=== PATIENT | male | born 1945 | race African-American/Black ===

== ENCOUNTER 2018-02-04 13:33 | Emergency (ER) | payer SELFPAY ==
[~2018-02-04 13:33] MED LIST: Calcium Chloride 1 GM/10 ML Abboject SYRINGE ONE; EPINEPHrine 1 MG/10 ML Abboject SYRINGE ONE; Sodium Bicarb 50 MEQ/50 ML Abboject 8.4% SYRINGE ONE
[2018-02-04 14:02] LABS: #Basophils 0.2 thou/uL (0.0-0.2); #Eosinphils 0.3 thou/uL (0.0-0.7); #Monocytes 0.2 thou/uL (0.11-0.59); #Neutrophils 5.1 thou/uL (1.40-6.50); %Eosinophils 3.5 % (0.0-10.0); %Lymphocytes 34.3 % (21.0-51.0); %Monocytes 1.9 % (0.0-10.0); %Neutrophils 58.3 % (42.0-75.0); Hemoglobin 11.1 g/dL (14.0-18.0); Mean Corpuscular HGB CONC 30.5 g/dL (32.0-36.0); Mean Corpuscular Hemoglobin 30.7 pg (27.0-31.0); Mean Platelet Volume 10.4 fL (7.4-10.4); Platelet Count 162 thou/uL (130-400); RBC Distribution Width 12.8 % (11.5-14.5); Red Blood Cell (RBC) Count 3.62 mill/uL (4.70-6.10); White Blood Cell (WBC) Count 8.7 thou/uL (4.8-10.8)
[2018-02-04 14:19] LABS: ALT (SGPT) 16 U/L (8-55); AST (SGOT) 99 U/L (5-34); Albumin 2.5 g/dL (3.4-4.8); Alkaline Phosphatase 159 U/L (40-150); Anion Gap 18 mmol/L (10-20); BUN (Urea Nitrogen) 23 mg/dL (8.4-25.7); Bilirubin, Total 0.4 mg/dL (0.2-1.2); CK (CPK) 246 U/L (30-200); Calc. Creatinine Clearance 0 mL/min (70-130); Calcium 10.3 mg/dL (7.8-10.44); Carbon Dioxide 20 mmol/L (23-31); Chloride 102 mmol/L (98-107); Estimated GFR-MDRD 51; Globulin 3.8 g/dL (2.4-3.5); Glucose 418 mg/dL (83-110); Potassium 4.8 mmol/L (3.5-5.1); Protein, Total 6.3 g/dL (5.8-8.1); Sodium 135 mmol/L (136-145)
[2018-02-04 14:23] LABS: CKMB 6.6 ng/mL (0-6.6)
[2018-02-04 14:46] LABS: Actual Bicarbonate (HCO3a) 21.5 mEq/L (22-28); Analyzer IN Cardio ER; Calcium, Ionized 1.17 mmol/L (1.12-1.30); Carboxyhemoglobin (COHb) 0.4 gm% (0.0-3.0); Hemoglobin (Hb) 12.5 g/dL (14.0-18.0); O2 Tension (PaO2) 473.8 mmHg (> 70.0); Potassium - ABG Lab 4.83 mmol/L (3.70-5.30); pH, Arterial 7.34 (7.35-7.45)
[2018-02-04 14:48] LABS: Puncture Site RBRACH
--- NOTE | 2018-02-04 15:15 | RAD ---
PORTABLE AP CHEST XRAY: DATE: 02/04/2018. HISTORY: Respiratory arrest, CPR by EMS upon arrival. Patient found unresponsive. FINDINGS: Endotracheal tube is noted in place with tip overlying the right mainstem bronchus and should be with drawn. Nasogastric tube is noted in place coursing into the left upper quadrant and the tip is not visualize d. Pacing devices overlie the right chest and left lateral lower chest and upper abdomen. Multilead left subclavian AICD device noted in place. 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 The ca rdiac silhouette is magnified by projection. Pulmonary vasculature is within normal limits. Lungs a re clear aside from calcified granuloma in the left mid lung zone. IMPRESSION: 1. Endotracheal tube noted in place with the tip overlying the right mainstem bronchus, and the tip should be withdrawn. 2. Nasogastric tube noted in place. 3. Lungs appear clear. 4. The above findings were discussed with Dr. Cortes in the emergency department on 02/04/2018 at 14 16 hours. POS: RAUL
--- NOTE | 2018-02-05 05:29 | DIS ---
DATE OF ADMISSION: 02/04/2018 DATE OF DISCHARGE: 02/04/2018 SUMMARY: ATTENDING: Wesley Aroar MD RESIDENT: Camilo Sandhu MD DATE OF : 02/04/2018. TIME OF : 1639 hours. CAUSE OF : Hypoxic respiratory failure, secondary to anoxic brain injury. SECONDARY DIAGNOSES: 1. Systolic congestive heart failure. 2. Coronary artery disease. 3. Insulin-dependent diabetes mellitus.. 4. Hyperlipidemia. 5. Chronic kidney disease, stage 3. HOSPITAL COURSE: This was a 72-year-old male, who was at home when he slumped in his chair and became unresponsive. called EMS and then began CPR. The patient was without a pulse for approximately 30 minutes before ROSC was achieved by EMS personnel. He was intubated in the field. The patient presented to the [facility] ED and once again went into cardiac arrest. The patient went approximately 15 minutes without a pulse and received 6 doses of epinephrine. ROSC achieved at that time and a central line was placed. The patient was placed on a dopamine and epinephrine drip. Physical exam showed fixed and dilated pupils, no spontaneous respirations. There was no withdrawal to painful stimuli. Per family's wishes, the patient was taken off the ventilator and all medicines. The patient eventually approximately 30 minutes after medical therapy was stopped. Job ID: [id number] [facility]
== END 2018-02-04 16:37 | disposition expired ==
LOC: EDBD 13:33 → ERS 13:33
DX: I46.9 Cardiac arrest, cause unspecified (principal); I10 Essential (primary) hypertension; E11.9 Type 2 diabetes mellitus without complications; I25.2 Old myocardial infarction; Z86.73 Personal history of transient ischemic attack (TIA), and cerebral infarction without residual deficits
CPT/HCPCS: 36416; 36556; 51702; 71045; 80053; 82553; 82805; 83605; 83880; 84484; 85025; 92950; 93005; 94002; 94760; 96365; 96366; 96368; 96375; 96376; 99292; J0171